=== PATIENT | female | born 1985 | race Caucasian/White ===

== ENCOUNTER 2018-10-23 14:35 | Outpatient (CLI) | payer SELFPAY ==
[2015-10-13 04:58] VITALS: BP 104/58
== END 2018-10-23 14:36 ==
LOC: LABRHC 14:35
PROVIDERS: ATTEND Nurse Practitioner Family
DX: Z53.9 Procedure and treatment not carried out, unspecified reason (principal)
CPT/HCPCS: 87491; 87591